=== PATIENT | female | born 1965 | race Caucasian/White ===

== ENCOUNTER 2021-05-21 03:21 | Day surgery (SDCO) | payer OTHER ==
[~2021-05-21] VITALS: Ht 170.2 cm; Wt 104.3 kg
[2021-05-21 04:00] LABS: BASOPHIL 0.5 % (0-2); EOSINOPHIL 1.1 % (0-5); HCT 38.8 % (37.0-47.0); HGB 12.4 g/dl (12.5-16.0); LYMPHOCYTE 13.8 % (15-48); MCH 29.7 pg (25.0-31.0); MONOCYTE 2.1 % (0-12); MPV 11.7 fL (6.0-9.5); NEUTROPHIL 82.3 % (41-80); NRBC 0; PLT 242 K/uL (150-400); RBC 4.17 M/uL (4.20-5.40); RDW 14.3 % (11.5-14.0); WBC 12.8 K/uL (4.0-10.5)
[2021-05-21 04:21] LABS: PRO-BNP 47 pg/mL (<125)
[2021-05-21 04:23] LABS: ALBUMIN 3.2 g/dL (3.4-5.0); BILIRUBIN - TOTAL 0.4 mg/dL (0.2-1.0); BUN/CREAT RATIO (CALC) 28.2 RATIO; CREATININE 0.71 mg/dL (0.51-0.95); GLOBULIN (CALCULATION) 2.8 g/dL; POTASSIUM 4.1 mmol/L (3.5-5.1)
[2021-05-21] MEDS ORDERED: TIZANIDINE HCL4 MG PO (09:12)
[2021-05-21] MEDS ORDERED: PHENTERMINE H37.5 M1 PO (09:13)
[2021-05-21] MEDS ORDERED: BELSOMRA20 MG PO (09:13)
[2021-05-21] MEDS ORDERED: ALPRAZOLAM2 MG PO (09:14)
[2021-05-21] MEDS ORDERED: DICLOFENAC SODI75 MG PO (09:14)
[2021-05-21] MEDS ORDERED: MELOXICAM7.5 MG PO (09:15)
[2021-05-21] MEDS ORDERED: XANAX0.5 MG PO (09:17)
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
--- NOTE | 2021-05-21 13:49 | NUR ---
TALKED WITH RENE WITH CASE MANAGEMENT. TOLD HER ABOUT THE SITUATION WITH PATIENT AND GENTLEMAN (EMILIANA PALOMARES). SHE IS GOING TO TALK WITH THE PATIENT. 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 I LET RENE KNOW THAT I WAS NOT SURE WHAT THE PATIENT NEEDED OR EVEN WANTED HELP WITH.
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
[2021-05-22 03:44] LABS: BASOPHIL 0.3 % (0-2); EOSINOPHIL 1.3 % (0-5); HCT 33.5 % (37.0-47.0); HGB 10.9 g/dl (12.5-16.0); MCH 30.4 pg (25.0-31.0); MCHC 32.5 g/dL (32.0-36.0); MCV 93.6 fL (78.0-100.0); MONOCYTE 4.4 % (0-12); MPV 11.3 fL (6.0-9.5); NEUTROPHIL 81.5 % (41-80); NRBC 0; PLT 165 K/uL (150-400); RBC 3.58 M/uL (4.20-5.40); RDW 14.4 % (11.5-14.0); WBC 15.1 K/uL (4.0-10.5)
[2021-05-22 03:58] LABS: ALBUMIN 2.5 g/dL (3.4-5.0); BILIRUBIN - TOTAL 0.7 mg/dL (0.2-1.0); BUN/CREAT RATIO (CALC) 17.5 RATIO; CREATININE 0.57 mg/dL (0.51-0.95); GLOBULIN (CALCULATION) 3.2 g/dL; POTASSIUM 3.5 mmol/L (3.5-5.1); TOTAL PROTEIN 5.7 g/dL (6.4-8.2)
[2021-05-22] MEDS ORDERED: AZITHROMYCIN250 MG PO (10:54)
[2021-05-25 12:08] LABS: ORGANISM ID Not indicated. (.); SPECIMEN SOURCE Urine (.); STREPTOCOCCUS PNEUMONIAE AG Negative (Negative)
== END 2021-05-22 11:55 | disposition home or self-care (01) ==
LOC: FER 03:21 → FMS 05:56
PROVIDERS: Emergency Medicine; Internal Medicine; ADMIT Internal Medicine
DX: J18.9 Pneumonia, unspecified organism (principal); J96.01 Acute respiratory failure with hypoxia; E87.6 Hypokalemia; F41.9 Anxiety disorder, unspecified; F32.9 Major depressive disorder, single episode, unspecified; G47.00 Insomnia, unspecified; Z86.73 Personal history of transient ischemic attack (TIA), and cerebral infarction without residual deficits; Z98.84 Bariatric surgery status; Z87.891 Personal history of nicotine dependence; Z86.711 Personal history of pulmonary embolism; Z88.5 Allergy status to narcotic agent; Z88.8 Allergy status to other drugs, medicaments and biological substances; Z79.899 Other long term (current) drug therapy; Z20.822 Contact with and (suspected) exposure to COVID-19
CPT/HCPCS: 36415; 71045; 71275; 80053; 83036; 83605; 83880; 84145; 84484; 85025; 85379; 87040; 93005; 93970; 94760; G0378; J0456; J0696; J1650; J1885; J2060; J7040; J7050; Q9967; U0002

== ENCOUNTER → 2021-11-15 | Day surgery (SDC) | payer OTHER ==
[~2021-11-15] VITALS: Ht 170.2 cm; Wt 104.1 kg
[~2021-11-15] MED LIST: ALPRAZOLAM2 MG PO; AZITHROMYCIN250 MG PO; BELSOMRA20 MG PO; BUPROPION XL300 MG PO; CEFDINIR300 MG PO; DICLOFENAC SODI75 MG PO; GABAPENTIN 100100 MG PO; LEVALBUTEROL TA15 GM INH; MELOXICAM7.5 MG PO; PHENTERMINE H37.5 M1 PO; TIZANIDINE HCL4 MG PO; TRAMADOL HCL50 MG PO; XANAX0.5 MG PO; ZPAK PO
[2021-11-15 07:30] LABS: HCG (URINE) SCREEN NEGATIVE (NEGATIVE)
[2021-11-15 07:44] LABS: HCT 34.6 % (37.0-47.0); HGB 11.2 g/dl (12.5-16.0); MCHC 32.4 g/dL (32.0-36.0); MCV 86.5 fL (78.0-100.0); MPV 11.1 fL (6.0-9.5); RDW 14.6 % (11.5-14.0); WBC 5.1 K/uL (4.0-10.5)
== END | disposition home or self-care (01) ==
LOC: FAS 09-27 07:00
PROVIDERS: Legal Medicine
DX: M23.300 Other meniscus derangements, unspecified lateral meniscus, right knee (principal); M17.11 Unilateral primary osteoarthritis, right knee; M22.41 Chondromalacia patellae, right knee; S83.222A Peripheral tear of medial meniscus, current injury, left knee, initial encounter; Z98.84 Bariatric surgery status; Z79.01 Long term (current) use of anticoagulants; Z88.8 Allergy status to other drugs, medicaments and biological substances; X58.XXXA Exposure to other specified factors, initial encounter; Y92.9 Unspecified place or not applicable
CPT/HCPCS: 36415; 84703; J0690; J1100; J1170; J1885; J2250; J2274; J2405; J2704; J2795; J3010; J7120